=== PATIENT | male | born 1970 | race Caucasian/White ===

== ENCOUNTER 2021-06-17 10:30 | Day surgery (SDC) | payer OTHER ==
[2021-06-14 17:49] VITALS: BMI 29.5
[2021-06-17] MEDS ORDERED: BUPIVACAINE HCL 50 ML ONE (11:05)
[2021-06-17] MEDS ORDERED: BUPIVACAINE HCL 100 ML ONE (11:05)
[2021-06-17] MEDS ORDERED: SUCCINYLCHOLINE CHLORIDE 200 MG/10 ML SYRINGE ONE (13:18)
[2021-06-17] MEDS ORDERED: MIDAZOLAM HCL 2 MG/2 ML SINGLE DOSE VIAL ONE (13:18)
[2021-06-17] MEDS ORDERED: PROPOFOL 20 ML ONE ×2 (13:18)
[2021-06-17] MEDS ORDERED: LIDOCAINE HCL 2% JELLY (5 ML/TUBE) ONE (13:29)
[2021-06-17] MEDS ORDERED: KETOROLAC TROMETHAMINE 30 MG/1 ML VIAL ONE (13:29)
[2021-06-17] MEDS ORDERED: DEXAMETHASONE SOD PHOSPHATE 4 MG/1 ML VIAL ONE (13:29)
[2021-06-17] MEDS ORDERED: ceFAZolin SODIUM 1 GM VIAL ONE (13:29)
[2021-06-17] MEDS ORDERED: ONDANSETRON 4 MG/2 ML VIAL ONE (13:29)
[2021-06-17] MEDS ORDERED: LIDOCAINE HCL/PF 2% SDV 5ML VIAL ONE (13:29)
[2021-06-17] MEDS ORDERED: ONDANSETRON 4 MG/2 ML VIAL IVPUSH PRN (14:59)
[2021-06-17] MEDS ORDERED: PROMETHAZINE HCL 25 MG/1 ML VIAL IVPUSH PRN (14:59)
[2021-06-17] MEDS ORDERED: oxyCODONE HCL 5 MG TABLET PO PRN ×3 (14:59→15:07)
[2021-06-17] MEDS ORDERED: ACETAMINOPHEN INJECTION 100 ML IVPB ONE (15:03)
[2021-06-17] MEDS ORDERED: ACETAMINOPHEN 325 MG TABLET (FP) PO PRN (15:07)
[2021-06-17] MEDS ORDERED: ACETAMINOPHEN 1000 MG/100 ML VIAL (NON FORMULARY) IVPB ONE (15:10)
[2021-06-17] MEDS ORDERED: oxyCODONE HCL 5 MG TABLET ONE (15:41)
[2021-06-17 18:28] VITALS: BP 151/100; PULSE 80; TEMP 98.2
== END 2021-06-17 17:45 | disposition home or self-care (01) ==
LOC: FASU 10:30
PROVIDERS: ATTEND Orthopaedic Surgery
PROC: 0SBC4ZZ Excision of Right Knee Joint, Percutaneous Endoscopic Approach (ICD-10-PCS; 2021-06-17)
PROC: 0SBC4ZZ Excision of Right Knee Joint, Percutaneous Endoscopic Approach (ICD-10-PCS; principal; 2021-06-17 13:43)
DX: S83.241A Other tear of medial meniscus, current injury, right knee, initial encounter (principal); S83.281A Other tear of lateral meniscus, current injury, right knee, initial encounter; M65.9 Synovitis and tenosynovitis, unspecified; M22.41 Chondromalacia patellae, right knee; X58.XXXA Exposure to other specified factors, initial encounter; Y93.9 Activity, unspecified; Y92.9 Unspecified place or not applicable
CPT/HCPCS: 29880; G0289; 94760; J0131

== ENCOUNTER 2022-11-15 08:44 | Day surgery (SDC) | payer OTHER ==
[2022-11-08 09:52] VITALS: BMI 29.0
[2022-11-15] MEDS ORDERED: MIDAZOLAM HCL 2 MG/2 ML SINGLE DOSE VIAL ONE ×2 (10:03→11:15)
[2022-11-15] MEDS ORDERED: BUPIVACAINE LIPOSOME/PF (EXPAREL) 266 MG/20 ML VIAL ONE (10:03)
[2022-11-15] MEDS ORDERED: BUPIVACAINE HCL/PF 0.5% (5MG/ML) 10 ML VIAL ONE (10:04)
[2022-11-15] MEDS ORDERED: PROPOFOL 20 ML ONE ×2 (11:22→11:23)
[2022-11-15] MEDS ORDERED: EPINEPHrine 1:1,000 1,000 MCG/ML ML ONE (11:31)
[2022-11-15] MEDS ORDERED: BUPIVACAINE HCL/EPINEPHRINE/PF 30 ML VIAL IJ ONE (11:31)
[2022-11-15] MEDS ORDERED: VANCOMYCIN 1,000 MG VIAL (RESTRICTED TO ID ONLY) ONE (11:44)
[2022-11-15] MEDS ORDERED: TRANEXAMIC ACID 1000 MG/10 ML VIAL ONE (12:03)
[2022-11-15] MEDS ORDERED: NEOSTIGMINE METHYLSULFATE 0.5 MG/1 ML - 10 ML MDV ONE (12:19)
[2022-11-15] MEDS ORDERED: FENTANYL CITRATE/PF 50 MCG/ML VIAL ONE ×3 (13:59→14:28)
[2022-11-15] MEDS ORDERED: oxyCODONE HCL 5 MG TABLET PO PRN (14:05)
[2022-11-15] MEDS ORDERED: HYDROmorphone HCL/PF 1 MG/ML VIAL ONE ×2 (14:40→15:07)
[2022-11-15] MEDS ORDERED: HYDROmorphone HCL CARPU-JECT 2 MG/1 ML DISP.SYRIN IVPUSH SCH (14:45)
[2022-11-15] MEDS ORDERED: HYDROmorphone HCL/PF 1 MG/ML VIAL IVPUSH SCH (15:11)
[2022-11-15 15:45] VITALS: RESP 18
[2022-11-15] MEDS ORDERED: oxyCODONE HCL 5 MG TABLET ONE (15:48)
[2022-11-15 17:11] VITALS: BP 134/78; PULSE 68; TEMP 97.9
== END 2022-11-15 17:00 | disposition home or self-care (01) ==
LOC: FASU 08:44
PROVIDERS: ATTEND Orthopaedic Surgery
PROC: 0MRN47Z Replacement of Right Knee Bursa and Ligament with Autologous Tissue Substitute, Percutaneous Endoscopic Approach (ICD-10-PCS; principal; 2022-11-15 12:12)
PROC: 0SPC04Z Removal of Internal Fixation Device from Right Knee Joint, Open Approach (ICD-10-PCS; 2022-11-15 12:12)
DX: S83.511A Sprain of anterior cruciate ligament of right knee, initial encounter (principal); M23.51 Chronic instability of knee, right knee
CPT/HCPCS: 20680; 29888; C1713; 88300-TC; 94760